=== PATIENT | male | born 1985 | race Hispanic/Latino ===

== ENCOUNTER 2023-04-24 02:16 | Emergency (ER) | payer BC ==
[2023-04-24] MEDS ORDERED: Ketorolac Tromethamine 30 MG (1 mL) VIAL ONE (02:27)
== END 2023-04-24 02:47 | disposition home or self-care (01) ==
LOC: CSHERS 02:16
DX: M25.511 Pain in right shoulder (principal)
CPT/HCPCS: 96372; 99283; J1885